=== PATIENT | female | born 1955 | race Caucasian/White ===

== ENCOUNTER 2022-01-30 11:46 | Outpatient (CLI) | payer OTHER | END 2022-01-30 11:53 | disposition home or self-care (01) | LOC: RAD 11:46 | PROVIDERS: ATTEND Colon & Rectal Surgery | DX: K59.09 Other constipation (principal) ==

== ENCOUNTER 2022-06-28 14:15 | Inpatient (IN) | payer OTHER ==
[~2022-06-28] VITALS: Ht 157.5 cm; Wt 79.8 kg
[2022-06-29] MEDS ORDERED: SYNTHROID50 MCG PO (12:41)
[2022-06-29] MEDS ORDERED: COZAAR100 MG PO (12:41)
[2022-06-29] MEDS ORDERED: SINGULAIR10 MG PO (12:42)
[2022-06-29] MEDS ORDERED: HORIZANT600 MG PO (12:42)
[2022-06-29] MEDS ORDERED: VITAMIN D PO (12:42)
[2022-06-29] MEDS ORDERED: QVAR REDIHALE10.6 G1 IH (12:43)
[2022-06-29] MEDS ORDERED: DOLOGEN 325-11 EACH PO (12:43)
[2022-07-04] MEDS ORDERED: GABAPENTIN600 MG (10:31)
[2022-07-04] MEDS ORDERED: OPTIVE EYE DROP15 ML (10:31)
[2022-07-04] MEDS ORDERED: VITAMIN D3250 MCG (10:31)
== END 2022-07-06 13:24 | disposition home or self-care (01) | DRG 331 ==
LOC: SURG 07-04 07:00 → SURH 07-04 07:48 → O/R 07-04 07:48 → SURG 07-04 11:00 → SURH 07-04 12:49
PROVIDERS: ADMIT Colon & Rectal Surgery; ATTEND Colon & Rectal Surgery
PROC: 0DBP4ZZ Excision of Rectum, Percutaneous Endoscopic Approach (ICD-10-PCS; 2022-07-04)
PROC: 0DJD8ZZ Inspection of Lower Intestinal Tract, Via Natural or Artificial Opening Endoscopic (ICD-10-PCS; 2022-07-04)
PROC: 0DTN4ZZ Resection of Sigmoid Colon, Percutaneous Endoscopic Approach (ICD-10-PCS; principal; 2022-07-04 07:00)
DX: K57.32 Diverticulitis of large intestine without perforation or abscess without bleeding (principal); Z20.822 Contact with and (suspected) exposure to COVID-19